=== PATIENT | male | born 1975 | race African-American/Black ===

== ENCOUNTER 2017-01-31 10:26 | Emergency (ER) | payer OTHER ==
[~2017-01-31] VITALS: Ht 190.5 cm; Wt 127.0 kg
[2017-01-31 11:12] LABS: ABSOLUTE NEUTROPHILS 2.9 thou/uL (1.4-8.2); BASOPHILS 0.7 % (0.0-2.0); EOSINOPHILS 1.3 % (0.0-3.0); HEMATOCRIT 40.6 % (42.0-52.0); HEMOGLOBIN 13.9 gm/dL (14.0-18.0); LYMPHOCYTES 31.8 % (24.0-44.0); MCH 30.4 pg (26.0-34.0); MCHC 34.2 g/dL (28.0-37.0); MCV 88.8 fL (80.0-100.0); MONOCYTES 11.5 % (1.0-8.0); PLATELET COUNT 199 thou/uL (150-400); POLYS 54.7 % (36.0-66.0); RBC 4.57 mil/uL (4.50-6.00); RDW 14.7 % (10.5-14.5); WBC 5.2 thou/uL (4.0-11.0)
[2017-01-31 11:13] LABS: MANUAL DIFF NO
[2017-01-31 11:15] LABS: CALCIUM 8.3 mg/dL (8.5-10.1); CREATININE 1.2 mg/dL (0.7-1.3); POTASSIUM 3.8 mmol/L (3.5-5.1)
[2017-01-31 11:28] LABS: AMP/METHAMP Negative (Negative); BARBITURATES Negative (Negative); BENZODIAZEPINES Negative (Negative); COCAINE Negative (Negative); METHADONE Negative (Negative); OPIATES Negative (Negative); PCP POSITIVE (Negative); THC Negative (Negative)
[2017-01-31 11:34] VITALS: BP 145/95
== END 2017-01-31 11:50 ==
LOC: ER 10:26
PROVIDERS: Emergency Medicine
DX: R42 Dizziness and giddiness (principal); F16.929 Hallucinogen use, unspecified with intoxication, unspecified; I10 Essential (primary) hypertension; F17.210 Nicotine dependence, cigarettes, uncomplicated